=== PATIENT | male | born 1960 | race Caucasian/White ===

== ENCOUNTER 2018-06-10 19:24 | Emergency (ER) | payer OTHER ==
[~2018-06-10] VITALS: Ht 172.7 cm; Wt 82.0 kg
[2018-06-10 20:00] VITALS: BP 112/80
== END 2018-06-11 | disposition left against medical advice (07) ==
LOC: ER 19:24
DX: R50.9 Fever, unspecified (principal); R11.10 Vomiting, unspecified; M79.10 Myalgia, unspecified site; Z53.21 Procedure and treatment not carried out due to patient leaving prior to being seen by health care provider